=== PATIENT | female | born 1985 | race Caucasian/White ===

== ENCOUNTER → 2017-02-26 | Outpatient (CLI) | payer OTHER | LOC: COL.LAB 07:53 | DX: N91.2 Amenorrhea, unspecified (principal) ==

== ENCOUNTER → 2017-02-28 | Outpatient (CLI) | payer OTHER | LOC: COL.LAB 08:17 | DX: N91.2 Amenorrhea, unspecified (principal) ==

== ENCOUNTER → 2017-03-05 | Outpatient (CLI) | payer OTHER | LOC: COL.LAB 08:27 | DX: Z51.81 Encounter for therapeutic drug level monitoring (principal); N92.6 Irregular menstruation, unspecified ==

== ENCOUNTER 2017-09-11 16:13 | Inpatient (IN) | payer OTHER ==
[~2017-09-11] VITALS: Ht 177.8 cm; Wt 98.6 kg
[2017-11-08] VITALS (50 sets, daily range): BP systolic 95–140; BP diastolic 50–78; PULSE 84–129; TEMP 98–98.5
[2017-11-08] MEDS ORDERED: FOLIC ACID0.8 MG PO (07:25)
[2017-11-08] MEDS ORDERED: CLARITIN 1010 MG/TAB PO (07:25)
[2017-11-08] MEDS ORDERED: CALCIUM CARBON650 M2 (07:25)
[2017-11-08] MEDS ORDERED: ZANTAC 7575 MG PO (07:26)
[2017-11-08] MEDS ORDERED: PRENATAL (07:26)
[2017-11-08 08:07] LABS: MEAN CELL VOLUME 101 fl (80.0-100.0); MEAN CORPUSCULAR HGB CONC 34 g/dl (33.0-37.0); MEAN PLATELET VOLUME 9.9 fl (7.4-10.4); PLATELET COUNT 159 K/mm3 (130-400); RED BLOOD COUNT 3.41 M/mm3 (4.10-5.30); REDCELL DISTRIBUTION WIDTH-CV 14.6 % (11.5-14.5)
[2017-11-08 08:09] LABS: HEMATOCRIT 34.4 % (37.0-47.0); HEMOGLOBIN 11.6 g/dl (12.5-16.0); MEAN CORPUSCULAR HEMOGLOBIN 34 pg (27.0-31.0)
[2017-11-08 11:18] LABS: BAND 30 % (0-10); BASOPHIL 1 % (0-2); EOSINOPHIL 1 % (0-4); LYMPHOCYTE 28 % (20.0-51.0); NEUTROPHILS 38 % (42.0-75.2); PLATELET ESTIMATE NORMAL (NORMAL)
[2017-11-08 11:19] LABS: TOXIC GRANULATION PRESENT
[2017-11-08] MEDS ORDERED: MOTRIN 800800 MG/TAB PO (19:06)
[2017-11-08] MEDS ORDERED: PERCOCET 325 MG1 TA2 PO (19:06)
[2017-11-09 00:01] VITALS: BP 116/62; PULSE 129; TEMP 98
[2017-11-09 05:10] VITALS: BP 105/58; PULSE 104; TEMP 97.9
[2017-11-09 10:00] VITALS: BP 117/67; PULSE 97; TEMP 98.3
[2017-11-09 20:00] VITALS: BP 118/72; PULSE 90; TEMP 98.3
[2017-11-10 08:30] VITALS: BP 118/57; PULSE 95; TEMP 98.1
== END 2017-11-10 16:30 | disposition home or self-care (01) | DRG 775 ==
LOC: EDSTATUS 11-06 06:56 → LDRO 11-06 16:13 → LDR 11-08 06:59 → OB 11-08 23:33
PROVIDERS: Obstetrics & Gynecology
PROC: 10E0XZZ Delivery of Products of Conception, External Approach (ICD-10-PCS; principal; 2017-11-08)
PROC: 0KQM0ZZ Repair Perineum Muscle, Open Approach (ICD-10-PCS; 2017-11-08)
PROC: 3E033VJ Introduction of Other Hormone into Peripheral Vein, Percutaneous Approach (ICD-10-PCS; 2017-11-08)
DX: O48.0 Post-term pregnancy (principal); O99.824 Streptococcus B carrier state complicating childbirth; O70.1 Second degree perineal laceration during delivery; Z3A.40 40 weeks gestation of pregnancy; Z37.0 Single live birth
CPT/HCPCS: C9113; J2590; J2795; J7120

== ENCOUNTER → 2020-07-20 | Outpatient (CLI) | payer OTHER ==
[~2020-07-20] MED LIST: CALCIUM CARBON650 M2; CLARITIN 1010 MG/TAB PO; FOLIC ACID0.8 MG PO; MOTRIN 800800 MG/TAB PO; PERCOCET 325 MG1 TA2 PO; PRENATAL; ZANTAC 7575 MG PO
== END ==
LOC: ZCOL.LAB 16:20
DX: Z20.828 Contact with and (suspected) exposure to other viral communicable diseases (principal)